=== PATIENT | female | born 1995 | race African-American/Black ===

== ENCOUNTER 2017-11-11 15:14 | Emergency (ER) | payer OTHER ==
[~2017-11-11] VITALS: Ht 167.6 cm; Wt 79.2 kg
[2017-11-11 16:02] LABS: HEMOGLOBIN 12.5 G/DL (11.9-15.5); MCH 28.2 PG (29.0-34.0); MCHC 33.8 G/DL (30.0-36.0); MCV 83.5 FL (83-99); PLATELET COUNT 325 K/uL (156-360); RBC DIS.WIDTH-CV 13.6 % (11.8-14.6); RBC DIS.WIDTH-SD 41.7 % (39-53); RED BLOOD COUNT 4.43 M/uL (3.80-5.20); WHITE BLOOD COUNT 8.3 K/uL (4.1-10.2)
[2017-11-11 16:10] LABS: ALBUMIN 4.3 g/dL (3.2-4.8); CHLORIDE 108 mEq/L (99-109); POTASSIUM 3.5 mEq/L (3.7-5.4); SODIUM 141 mEq/L (136-147)
[2017-11-11 16:12] LABS: GLUCOSE 82 mg/dL (70-99); TOTAL PROTEIN 7.4 g/dL (6.4-8.3)
[2017-11-11 16:14] LABS: TOTAL BILIRUBIN 0.7 mg/dL (0.0-1.0)
[2017-11-11 16:16] LABS: ALKALINE PHOSPHATASE 65 IU/L (3-129); CREATININE 0.8 mg/dL (0.6-1.3); GFR ESTIMATE (CALCULATED) > 59 mL/min/
[2017-11-11 16:17] LABS: UREA NITROGEN (BUN) 8 mg/dL (9-23)
[2017-11-11 16:18] LABS: AST (GOT) 19 IU/L (2-34)
[2017-11-11 16:19] LABS: ALT (GPT) 18 IU/L (3-49)
[2017-11-11 16:27] LABS: QUANTITATIVE HCG < 4.0 MIU/ML
[2017-11-11] MEDS ORDERED: ZOFRAN ODT4 MG PO (17:31)
[2017-11-11] MEDS ORDERED: BENTYL10 MG PO (17:31)
[2017-11-11] MEDS ORDERED: ZOVIRAX800 M1 PO (18:04)
[2017-11-11 18:48] VITALS: BP 158/89
== END 2017-11-11 18:48 | disposition home or self-care (01) ==
LOC: EME 15:14
PROVIDERS: Nurse Practitioner Family
DX: R10.32 Left lower quadrant pain (principal); B02.9 Zoster without complications; R11.2 Nausea with vomiting, unspecified; I10 Essential (primary) hypertension; F17.200 Nicotine dependence, unspecified, uncomplicated
CPT/HCPCS: 74177; 80053; 84702; 85027; 99281; 99284; J1885; J2405; J3010; J7030